=== PATIENT | female | born 1945 | race Caucasian/White ===

== ENCOUNTER → 2017-09-15 | Outpatient (CLI) | payer OTHER | LOC: M.RAD 09:17 | DX: Z12.31 Encounter for screening mammogram for malignant neoplasm of breast (principal) ==

== ENCOUNTER 2018-11-02 11:02 | Emergency (ER) | payer OTHER ==
[~2018-11-02] VITALS: Ht 170.2 cm; Wt 81.7 kg
[2018-11-02] MEDS ORDERED: UNICOMPLEX M TA1 TA1 PO (11:13)
[2018-11-02] MEDS ORDERED: ZANAFLEX4 MG PO (12:54)
[2018-11-02 13:10] VITALS: BP 179/85
== END 2018-11-02 13:11 | disposition home or self-care (01) ==
LOC: M.ERS 11:02
DX: S61.215A Laceration without foreign body of left ring finger without damage to nail, initial encounter (principal); S16.1XXA Strain of muscle, fascia and tendon at neck level, initial encounter; S60.211A Contusion of right wrist, initial encounter; S00.03XA Contusion of scalp, initial encounter; Z88.5 Allergy status to narcotic agent; Z88.2 Allergy status to sulfonamides; Z88.8 Allergy status to other drugs, medicaments and biological substances; W18.39XA Other fall on same level, initial encounter; Y93.89 Activity, other specified; Y92.89 Other specified places as the place of occurrence of the external cause; Y99.8 Other external cause status

== ENCOUNTER → 2018-11-13 | Outpatient (CLI) | payer OTHER ==
[~2018-11-13] MED LIST: UNICOMPLEX M TA1 TA1 PO; ZANAFLEX4 MG PO
== END ==
LOC: M.ULTRA 13:18
DX: Z12.31 Encounter for screening mammogram for malignant neoplasm of breast (principal); M41.84 Other forms of scoliosis, thoracic region; E04.1 Nontoxic single thyroid nodule; Z88.5 Allergy status to narcotic agent; Z88.2 Allergy status to sulfonamides; Z88.8 Allergy status to other drugs, medicaments and biological substances

== ENCOUNTER → 2020-06-20 | Outpatient (CLI) | payer MEDICARE | LOC: M.RAD 10:17 | PROVIDERS: ATTEND Internal Medicine | DX: Z12.31 Encounter for screening mammogram for malignant neoplasm of breast (principal) ==

== ENCOUNTER → 2021-06-21 | Outpatient (CLI) | payer MEDICARE | LOC: M.RAD 13:53 | PROVIDERS: ATTEND Internal Medicine | DX: Z12.31 Encounter for screening mammogram for malignant neoplasm of breast (principal) ==

== ENCOUNTER → 2021-07-10 | Outpatient (CLI) | payer MEDICARE | LOC: M.ULTRA 14:17 | PROVIDERS: ATTEND Internal Medicine | DX: E04.1 Nontoxic single thyroid nodule (principal) ==